=== PATIENT | male | born 1940 | race Caucasian/White ===

== ENCOUNTER → 2016-10-17 | Outpatient (CLI) | payer OTHER ==
[2014-09-18 08:52] VITALS: BP 138/58
[~2016-10-17] MED LIST: LOSA50TA6 PO; MECL25TA3 PO; ONDA4TAB10 SL; SIMV20TA PO; TEST5GEL TP
--- NOTE | 2016-10-17 13:20 | RAD ---
Lumbar spine radiographs History: Low back pain with sciatica for 2 months. Comparison: None. Findings: AP and lateral views lumbar spine, 3 images. 5 lumbar type vertebral bodies are present. No acute fracture or acute malalignment is identified. Multilevel degenerative disc disease is seen with varying loss of disc height, worst at T11-12, T12-L1, and L2-3. Multilevel facet degeneration is also seen. No spondylolysis lysis or spondylolisthesis is appreciated. Arterial calcifications are present. Multiple surgical clips are seen in the upper abdomen as well as in the lower pelvis. Impression: 1. No acute osseous abnormality identified. 2. Degeneration.
== END | disposition home or self-care (01) ==
LOC: DXRADRC 11:06
PROVIDERS: ATTEND Physician Assistant Medical
DX: M51.36 Other intervertebral disc degeneration, lumbar region (principal)
CPT/HCPCS: 72100